=== PATIENT | female | born 1960 | race Caucasian/White ===

== ENCOUNTER → 2016-10-20 | Outpatient (REF) | payer BC ==
[2016-10-20 17:47] LABS: BASOPHILS % (AUTO) 0 % (0-2); EOSINOPHILS # (AUTO) 0.1 10^3uL; EOSINOPHILS % (AUTO) 1 % (0-4); LYMPHOCYTES # (AUTO) 2.5 X10^3; MEAN CORPUSCULAR HEMOGLOBIN 28.9 PG (26.0-34.0); MEAN CORPUSCULAR HGB CONC 33.8 g/dL (31.0-37.0); MEAN CORPUSCULAR VOLUME 86 FL (80-100); MEAN PLATELET VOLUME 11.3 FL (6.0-9.5); MONOCYTES # (AUTO) 0.7 X10^3; MONOCYTES % (AUTO) 5 % (3-11); NEUTROPHILS # (AUTO) 9.1 X10^3; NEUTROPHILS % (AUTO) 73 % (51-67); PLATELET COUNT 229 10^3uL (150-450)
[2016-10-20 17:49] LABS: BILIRUBIN,URINE Negative (Negative); CLARITY,URINE Clear; COLOR,URINE Yellow; GLUCOSE, URINE (UA) 2+ (Negative); LEUKOCYTE ESTERASE, URINE Negative (Negative); UROBILINOGEN,URINE 0.2 mg/dL (0.2-1.0)
[2016-10-20 17:52] LABS: ALBUMIN 4.2 g/dL (3.4-5.0); ANION GAP 16.1 MEQ/L (3-15); CALCULATED IONIZED CALCIUM 4.2 mg/dL (3.8-4.6); TOTAL PROTEIN 7.3 g/dL (6.4-8.5)
== END ==
LOC: LAB 16:00
PROVIDERS: ATTEND Nurse Practitioner Family
DX: E11.9 Type 2 diabetes mellitus without complications (principal); E21.3 Hyperparathyroidism, unspecified
CPT/HCPCS: 80053; 81003; 82043; 83036; 83970; 85025